=== PATIENT | male | born 1985 | race Two or more races ===

== ENCOUNTER 2016-11-26 12:05 | Emergency (ER) | payer OTHER ==
[~2016-11-26] VITALS: Ht 165.1 cm; Wt 68.0 kg
[2016-11-26 12:20] VITALS: BP 132/84
[2016-11-26] MEDS ORDERED: LIDOCAINE 1% HCL (LOCAL ANESTH.) INJ 20ML MDV IN ONE (13:00)
== END 2016-11-26 13:38 | disposition home or self-care (01) ==
LOC: ER 12:07
DX: S41.112A Laceration without foreign body of left upper arm, initial encounter (principal); W45.8XXA Other foreign body or object entering through skin, initial encounter; Y93.89 Activity, other specified; Y99.9 Unspecified external cause status; Y92.89 Other specified places as the place of occurrence of the external cause
CPT/HCPCS: 12004